=== PATIENT | male | born 1985 | race African-American/Black ===

== ENCOUNTER 2017-10-04 06:37 | Emergency (ER) | payer OTHER ==
[2017-10-04] MEDS ORDERED: KETOROLAC 30 MG/ML 1 ML VIAL IVP STA (07:49)
[2017-10-04] MEDS ORDERED: ONDANSETRON 4 MG/2 ML VIAL IVP STA (07:49)
[2017-10-04] MEDS ORDERED: MORPHINE SULFATE 4 MG/ML SYRINGE IV STA (07:49)
[2017-10-04] MEDS ORDERED: SODIUM CHLORIDE 0.9% 1,000 ML IV STA (07:49)
--- NOTE | 2017-10-04 07:59 | ED ---
General Adult HPI - General Chief complaint: Abdominal Pain Stated complaint: Flank Pain Time Seen by Provider: 10/04/17 07:26 Source: patient, RN notes reviewed, old records reviewed Mode of arrival: ambulatory Limitations: no limitations - History of Present Illness Initial comments: This is a 32-year-old male the ER for evaluation. Patient presents today for evaluation flank pain left flank pain rating to groin. Decrease in urinary output, mild nausea no vomiting no fevers. Patient denies any trauma. No sick contacts or travel history. Patient states he does have history of kidney stones and this feels the same - Related Data Previous Rx's Medication Instructions Recorded Hydrocodone/Acetaminophen [Randle 1 each PO Q6HR PRN #20 tab 05/24/14 5-325] Ibuprofen [Motrin] 600 mg PO Q6HR PRN #40 day 05/24/14 Tamsulosin [Flomax] 0.4 mg PO DAILY #3 cap 05/24/14 HYDROcodone/APAP 5-325MG [Randle 1 tab PO Q6HR PRN 3 Days #12 tab 10/04/17 5-325] Naproxen [Naprosyn] 500 mg PO Q12HR #30 tab 10/04/17 Ondansetron [Zofran] 4 mg PO Q8HR PRN #30 tab 10/04/17 Allergies Allergy/AdvReac Type Severity Reaction Status Date / Time No Known Allergies Allergy Verified 10/04/17 07:50 Review of Systems ROS Statement: Those systems with pertinent positive or pertinent negative responses have been documented in the HPI. ROS Other: All systems not noted in ROS Statement are negative. Past Medical History Past Medical History: No Reported History Additional Past Medical History / Comment(s): kidney stones History of Any Multi-Drug Resistant Organisms: None Reported Past Surgical History: No Surgical Hx Reported Past Psychological History: No Psychological Hx Reported Smoking Status: Current every day smoker Past Alcohol Use History: None Reported Past Drug Use History: None Reported General Exam Limitations: no limitations General appearance: alert, in no apparent distress Head exam: Present: atraumatic, normocephalic, normal inspection Eye exam: Present: normal appearance, PERRL, EOMI. Absent: scleral icterus, conjunctival injection, periorbital swelling ENT exam: Present: normal exam, mucous membranes moist Neck exam: Present: normal inspection. Absent: tenderness, meningismus, lymphadenopathy Respiratory exam: Present: normal lung sounds bilaterally. Absent: respiratory distress, wheezes, rales, rhonchi, stridor Cardiovascular Exam: Present: regular rate, normal rhythm, normal heart sounds. Absent: systolic murmur, diastolic murmur, rubs, gallop, clicks GI/Abdominal exam: Present: soft, normal bowel sounds. Absent: distended, tenderness, guarding, rebound, rigid Extremities exam: Present: normal inspection, full ROM, normal capillary refill. Absent: tenderness, pedal edema, joint swelling, calf tenderness Back exam: Present: normal inspection Neurological exam: Present: alert, oriented X3, CN II-XII intact Psychiatric exam: Present: normal affect, normal mood Skin exam: Present: warm, dry, intact, normal color. Absent: rash Course Vital Signs 10/04/17 10/04/17 06:40 08:07 Temperature 97.2 F L Pulse Rate 72 62 Respiratory 18 16 Rate Blood Pressure 130/75 115/74 O2 Sat by Pulse 99 100 Oximetry - Reevaluation(s) Reevaluation #1: 10/04/17 07:59 Symptoms improved with pain control EKG Findings - EKG Comments: EKG Findings:: EKG shows normal sinus rhythm rate of 60, [place] 136, QRS 74, QTc 427 Medical Decision Making - Medical Decision Making 32 male the ER for evaluation left flank left lower quadrant pain. No acute cause found. The emergency room, patient will return if symptoms worse, CT abdomen and pelvis negative mild elevation of lipase but there is absolutely no epigastric abdominal tenderness no right upper quadrant tenderness. Patient denies any nausea or vomiting - Lab Data Result diagrams: 10/04/17 07:00 10/04/17 07:00 Lab Results 10/04/17 10/04/17 10/04/17 Range/Units 07:00 07:00 07:00 WBC 5.8 (3.8-10.6) k/uL RBC 5.41 (4.30-5.90) m/uL Hgb 15.6 (13.0-17.5) gm/dL Hct 48.6 (39.0-53.0) % MCV 89.8 (80.0-100.0) fL MCH 28.8 (25.0-35.0) pg MCHC 32.1 (31.0-37.0) g/dL RDW 12.5 (11.5-15.5) % Plt Count 196 (150-450) k/uL Neutrophils % 41 % Lymphocytes % 47 % Monocytes % 6 % Eosinophils % 3 % Basophils % 1 % Neutrophils # 2.4 (1.3-7.7) k/uL Lymphocytes # 2.8 (1.0-4.8) k/uL Monocytes # 0.4 (0-1.0) k/uL Eosinophils # 0.2 (0-0.7) k/uL Basophils # 0.0 (0-0.2) k/uL Sodium 144 (137-145) mmol/L Potassium 4.3 (3.5-5.1) mmol/L Chloride 105 (98-107) mmol/L Carbon Dioxide 27 (22-30) mmol/L Anion Gap 12 mmol/L BUN 14 (9-20) mg/dL Creatinine 1.17 (0.66-1.25) mg/dL Est GFR (CKD-EPI)AfAm >90 (>60 ml/min/1.73 sqM) Est GFR (CKD-EPI)NonAf 83 (>60 ml/min/1.73 sqM) Glucose 88 (74-99) mg/dL Calcium 9.3 (8.4-10.2) mg/dL Total Bilirubin 0.5 (0.2-1.3) mg/dL AST 26 (17-59) U/L ALT 31 (21-72) U/L Alkaline Phosphatase 47 (38-126) U/L Total Protein 6.6 (6.3-8.2) g/dL Albumin 4.1 (3.5-5.0) g/dL Amylase 203 H (30-110) U/L Lipase 1010 H (23-300) U/L Urine Color Yellow Urine Appearance Clear (Clear) Urine pH 6.0 (5.0-8.0) Ur Specific [place] 1.025 (1.001-1.035) Urine Protein Trace H (Negative) Urine Glucose (UA) Negative (Negative) Urine Ketones Negative (Negative) Urine Blood Negative (Negative) Urine Nitrite Negative (Negative) Urine Bilirubin Negative (Negative) Urine Urobilinogen 2.0 (<2.0) mg/dL Ur Leukocyte Esterase Negative (Negative) - Radiology Data Radiology results: report reviewed (CT abdomen and pelvis is negative), image reviewed Disposition Clinical Impression: Abdominal pain Disposition: TRANSFER TO PSYCH HOSP/UNIT Condition: Good Instructions: Abdominal Pain (ED) Prescriptions: HYDROcodone/APAP 5-325MG [Randle 5-325] 1 tab PO Q6HR PRN 3 Days #12 tab PRN Reason: Pain Naproxen [Naprosyn] 500 mg PO Q12HR #30 tab Ondansetron [Zofran] 4 mg PO Q8HR PRN #30 tab PRN Reason: Nausea And Vomiting Is patient prescribed a controlled substance at d/c from ED?: Yes If prescribed controlled substance>3 days was MAPS reviewed?: No When asked, does pt state using other controlled substances?: No Referrals: None,Stated [Primary Care Provider] - 1-2 days
[2017-10-04 08:00] LABS: Appearance,Urine Clear (Clear); Basophils % (A) 1 %; Bilirubin,Urine Negative (Negative); Blood,Urine Negative (Negative); Color,Urine Yellow; Eosinophils # (A) 0.2 k/uL (0-0.7); Eosinophils % (A) 3 %; Glucose,Urine (UA) Negative (Negative); HCT 48.6 % (39.0-53.0); HGB 15.6 gm/dL (13.0-17.5); Ketones,Urine Negative (Negative); Leukocyte Esterase,Urine Negative (Negative); Lymphocytes # (A) 2.8 k/uL (1.0-4.8); Lymphocytes % (A) 47 %; MCH 28.8 pg (25.0-35.0); MCHC 32.1 g/dL (31.0-37.0); MCV 89.8 fL (80.0-100.0); Mean Platelet Volume 7.9; Monocytes # (A) 0.4 k/uL (0-1.0); Monocytes % (A) 6 %; Neutrophils # (A) 2.4 k/uL (1.3-7.7); Neutrophils % (A) 41 %; Nitrite,Urine Negative (Negative); Platelet Count 196 k/uL (150-450); Protein,Urine Trace (Negative); RBC 5.41 m/uL (4.30-5.90); RDW 12.5 % (11.5-15.5); Specific Gravity,Urine 1.025 (1.001-1.035); WBC 5.8 k/uL (3.8-10.6)
[2017-10-04 08:08] VITALS: RESP 16
[2017-10-04 08:11] LABS: ALT 31 U/L (21-72); AST 26 U/L (17-59); Albumin 4.1 g/dL (3.5-5.0); Alkaline Phosphatase 47 U/L (38-126); Amylase 203 U/L (30-110); Anion Gap 12 mmol/L; Blood Urea Nitrogen 14 mg/dL (9-20); Calcium 9.3 mg/dL (8.4-10.2); Carbon Dioxide 27 mmol/L (22-30); Chloride 105 mmol/L (98-107); Glucose 88 mg/dL (74-99); Lipase 1010 U/L (23-300); Potassium 4.3 mmol/L (3.5-5.1); Sodium 144 mmol/L (137-145); Total Bilirubin 0.5 mg/dL (0.2-1.3); Total Protein 6.6 g/dL (6.3-8.2)
--- NOTE | 2017-10-04 08:48 | CT ---
EXAMINATION TYPE: CT abdomen pelvis wo con DATE OF EXAM: 10/04/2017 HISTORY: Lt flank pain CT DLP: 214.6 mGycm. Automated Exposure Control for Dose Reduction was Utilized. TECHNIQUE: CT scan of the abdomen and pelvis is performed without oral or IV contrast. COMPARISON: CT abdomen and pelvis November 03, 2011 FINDINGS: Within the limitations of a non-contrast study, the following observations are made. Patie nt has very little intra-abdominal fat making evaluation suboptimal. LUNG BASES: No significant abnormality is appreciated. LIVER/GB: No significant abnormality is appreciated. PANCREAS: No significant abnormality is seen. SPLEEN: No significant abnormality is seen. ADRENALS: No significant abnormality is seen. KIDNEYS: There is single 1 mm calculus mid pole level right kidney coronal image 50. No definitive le ft-sided nephrolithiasis. No hydronephrosis or obstructing ureter calculi are clearly seen bilaterall y. There are scattered pelvic phleboliths. No intraluminal calculus and poorly distended bladder is i dentified. BOWEL: Low-lying cecum is seen. GENITAL ORGANS: No gross abnormality seen. LYMPH NODES: No greater than 1cm abdominal or pelvic lymph nodes are appreciated. OSSEOUS STRUCTURES: No significant abnormality is seen. OTHER: No significant additional abnormality is seen. IMPRESSION: I see possibly new 1 mm nonobstructing calculus right kidney. No hydronephrosis or obstru cting ureter calculi are clearly seen bilaterally.
[2017-10-04 09:57] VITALS: BP 100/62; PULSE 60; TEMP 98
== END 2017-10-04 09:55 ==
LOC: EC 06:37
DX: R10.32 Left lower quadrant pain (principal); R11.0 Nausea; F17.200 Nicotine dependence, unspecified, uncomplicated; Z87.442 Personal history of urinary calculi
CPT/HCPCS: 36415; 80053; 82150; 83690; 85025; 81003; 87086; 74176; 99285; 96374; 96375 ×2; 96361; J2270; J2405; J1885